=== PATIENT | female | born 1990 | race Caucasian/White ===

== ENCOUNTER 2023-03-22 03:30 | Emergency (ER) | payer SELFPAY ==
[2023-03-22] MEDS ORDERED: Dexameth. Sod Phosp. 10 MG/ML (CHEMO USE ONLY) ONE (04:28)
[2023-03-22 05:05] LABS: SARS-CoV-2 NAA Rapid Test Not Detected (NotDetected)
== END 2023-03-22 07:38 | disposition home or self-care (01) ==
LOC: ERS 03:30
DX: B08.4 Enteroviral vesicular stomatitis with exanthem (principal); Z20.822 Contact with and (suspected) exposure to COVID-19
CPT/HCPCS: 99283; J1100